=== PATIENT | female | born 1980 | race Two or more races ===

== ENCOUNTER 2017-01-14 18:04 | Emergency (ER) | payer SELFPAY ==
[~2017-01-14] VITALS: Ht 160 cm; Wt 107.5 kg
--- NOTE | 2017-01-14 18:15 | NUR ---
BIBRA 89- ANXIETY ATTACK AFTER FRIEND GAVE HER "BLUE PILL"- FOR PAIN, UNKNOWN PILL. NAD NOTED, VSS, RESP EVEN AND UNLABORED. AAO x1, EASILY AROUSABLE. PT PUT ON MONITOR AND HOSPITAL GOWN, WAITNG FOR MD CODY.
--- NOTE | 2017-01-14 18:25 | NUR ---
dr august at bedside for eval.
[2017-01-14] MEDS ORDERED: IV NS 0.9% 1,000 ML BAG IV ONE (18:30)
--- NOTE | 2017-01-14 18:40 | NUR ---
labor arbitrator hearing office at bedside for blood draw.
[2017-01-14 18:49] LABS: BASOPHILS # (AUTO) 0.5 /CMM (0.0-0.2); BASOPHILS % (AUTO) 3.1 % (0.0-2.0); EOSINOPHILS # (AUTO) 0.5 /CMM (0.0-0.7); EOSINOPHILS % (AUTO) 2.8 % (0.0-6.0); HEMATOCRIT 42 % (33-45); HEMOGLOBIN 13.6 g/dL (11.5-14.8); LYMPHOCYTES # (AUTO) 2.5 /CMM (0.8-4.8); LYMPHOCYTES % (AUTO) 15.5 % (20.0-44.0); MEAN CORPUSCULAR HEMOGLOBIN 26 PG (26.0-33.0); MEAN CORPUSCULAR HGB CONC 33 g/dl (31.0-36.0); MEAN CORPUSCULAR VOLUME 81 fL (82-100); MONOCYTES # (AUTO) 0.7 /CMM (0.1-1.30); MONOCYTES % (AUTO) 4.2 % (2.0-12.0); NEUTROPHILS # (AUTO) 12.1 /CMM (1.8-8.9); NEUTROPHILS % (AUTO) 74.4 % (43.0-81.0); PLATELET COUNT (AUTO) 567 /CMM (150-450); RDW COEFFICIENT OF VARIATION 13.4 (11.5-15.0); RED BLOOD CELL COUNT(AUTO) 5.17 MIL/uL (4.0-5.2); WHITE BLOOD COUNT (AUTO) 16.3 K/uL (4.3-11.0)
[2017-01-14 18:54] LABS: CALCIUM, SERUM 9.4 mg/dL (8.5-10.1); CARBON DIOXIDE 26 mmol/L (21-32); CHLORIDE 104 mmol/L (98-107); GLUCOSE 106 mg/dL (74-106); POTASSIUM 4.2 mmol/L (3.5-5.1); SODIUM SERUM 139 mmol/L (136-145); UREA NITROGEN, BLOOD 18 mg/dL (7-18)
[2017-01-14 18:59] LABS: ALANINE AMINOTRANSFERASE 48 U/L (12-78); ALBUMIN 3.7 g/dL (3.4-5.0); ALCOHOL, BLOOD < 3 mg/dL (0-0); ALKALINE PHOSPHATASE 97 U/L (46-116); ASPARTATE AMINOTRANSFERASE 38 U/L (15-37); BILIRUBIN,DIRECT 0.1 mg/dL (0.0-0.2); BILIRUBIN,TOTAL 0.4 mg/dL (0.2-1.0); TOTAL PROTEIN, SERUM 8.6 g/dL (6.4-8.2)
[2017-01-14 19:00] LABS: ACETAMINOPHEN 0 ug/ml (10-30); SALICYLATE 1.8 mg/dL (2.8-20.0)
[2017-01-14 19:02] LABS: TROPONIN I < 0.017 ng/mL (0.00-0.056)
[2017-01-14 19:13] LABS: APPEARANCE,URINE Clear (CLEAR); BILIRUBIN,URINE Negative (NEGATIVE); BLOOD, URINE Negative Ery/uL (NEGATIVE); COLOR,URINE Yellow (YELLOW); KETONES,URINE Negative (NEGATIVE); LEUKOCYTE ESTERASE ,URINE Negative (NEGATIVE); NITRITE, URINE Negative (NEGATIVE); PH,URINE 5.5 (5.0-8.0); PROTEIN,URINE Negative (NEGATIVE); UGLUCOSE Negative (NEGATIVE); UROBILINOGEN,URINE 0.2 EU/dL (0.2)
[2017-01-14] MEDS ORDERED: IV NS 0.9% 250 ML IV ONE (19:37)
[2017-01-14] MEDS ORDERED: IOHEXOL-350 100 ML VIAL IV ONE (19:37)
[2017-01-14 19:45] LABS: INR 1.04 (0.87-1.13); PROTHROMBIN TIME 10.8 SECS (9.5-12.7)
--- NOTE | 2017-01-14 19:49 | NUR ---
pt to radiology for head and chest cta via [facility].
--- NOTE | 2017-01-14 21:03 | NUR ---
CALLED MARYLOU FOR FOR PSYCH EVAL ETA WITHIN THE HOUR
[2017-01-14] MEDS ORDERED: OLANZAPINE 10 MG VIAL IM ONE ×2 (21:16→21:30)
--- NOTE | 2017-01-14 23:37 | NUR ---
REPORT TO CHARGE NURSE ELIANA FOR YULIET.
--- NOTE | 2017-01-15 05:00 | NUR ---
pt ok to discharge per dr rao. Patient discharged to home in stable condition. Written and verbal after care instructions given. Patient verbalizes understanding of instruction.Patient is awake and alert to self, day, and place. pt ambulatory with a steady gait
[2017-01-15 06:48] VITALS: BP 129/80
== END 2017-01-15 06:48 | disposition home or self-care (01) ==
LOC: ER 18:06
DX: F91.9 Conduct disorder, unspecified (principal); F15.10 Other stimulant abuse, uncomplicated; R79.1 Abnormal coagulation profile; R41.82 Altered mental status, unspecified
CPT/HCPCS: 36415; 51702; 70450; 71010; 71275; 80048; 80076; 80305; 80329; 81001; 84484; 84703; 85025; 85730; 93005 ×2; 99285; A4606; G0480 ×2; J3490; J7030; J7050; Q9967; Z7610; 81000-TC

== ENCOUNTER 2021-07-28 01:27 | Inpatient (IN) | payer OTHER ==
[~2021-07-28] VITALS: Ht 154.9 cm; Wt 113.4 kg
--- NOTE | 2021-07-28 01:44 | NUR ---
BIBRA 89 FROM HOME C/O ABD PAIN HX ABD HERNIA SURGERY 8 MO AGO. ABD WOUND NOTED WITH DEHICENCE. PT A/OX4. TOLERATING R/A WELL WITH NO SOB. CONNECTED PT TO POX AND MONITOR
[2021-07-28] MEDS ORDERED: ONDANSETRON HCL/PF 4 MG/2 ML VIAL ONE (01:54)
[2021-07-28] MEDS ORDERED: IV NS 0.9% 1,000 ML BAG IV ONE (02:00)
[2021-07-28] MEDS ORDERED: ONDANSETRON HCL/PF 4 MG/2 ML VIAL IVP ONE (02:00)
--- NOTE | 2021-07-28 02:00 | NUR ---
BLOOD AND CULTURES COLLECTED AND SENT TO LAB
[2021-07-28 02:11] LABS: BASOPHILS # (AUTO) 0.1 K/uL (0.0-0.2); BASOPHILS % (AUTO) 0.6 % (0.0-2.0); EOSINOPHILS % (AUTO) 2.4 % (0.0-6.0); HEMATOCRIT 47 % (33-45); HEMOGLOBIN 15.2 g/dL (11.5-14.8); LYMPHOCYTES # (AUTO) 1.6 K/uL (0.8-4.8); MEAN CORPUSCULAR HGB CONC 32 g/dl (31.0-36.0); MEAN CORPUSCULAR VOLUME 78 fL (82-100); MONOCYTES # (AUTO) 0.4 K/uL (0.1-1.30); MONOCYTES % (AUTO) 3.2 % (2.0-12.0); NEUTROPHILS # (AUTO) 9.2 K/uL (1.8-8.9); NEUTROPHILS % (AUTO) 79.8 % (43.0-81.0); PLATELET COUNT (AUTO) 440 K/uL (150-450); RED BLOOD CELL COUNT(AUTO) 6.01 MIL/uL (4.0-5.2); WHITE BLOOD COUNT (AUTO) 11.5 K/uL (4.3-11.0)
[2021-07-28 02:24] LABS: CALCIUM, SERUM 9.1 mg/dL (8.5-10.1); POTASSIUM 4.3 mmol/L (3.5-5.1)
[2021-07-28] MEDS ORDERED: MORPHINE SULFATE INJ 4 MG/ML DISP.SYRIN ONE ×3 (02:24→08:18)
[2021-07-28 02:30] LABS: ALBUMIN 3.2 g/dL (3.4-5.0); BILIRUBIN,DIRECT 0.1 mg/dL (0.0-0.2); BILIRUBIN,TOTAL 0.3 mg/dL (0.2-1.0); TOTAL PROTEIN, SERUM 8.6 g/dL (6.4-8.2)
[2021-07-28] MEDS ORDERED: MORPHINE SULFATE INJ 2 MG/ML DISP.SYRIN IV ONE ×3 (02:30→08:30)
--- NOTE | 2021-07-28 02:40 | NUR ---
pt unable to provide urine at this time
--- NOTE | 2021-07-28 02:48 | NUR ---
PT TAKEN TO CT VIA DEBBIE
--- NOTE | 2021-07-28 02:49 | NUR ---
pt transported to ct via [facility]
--- NOTE | 2021-07-28 03:38 | NUR ---
FOLLOWED UP WITH [facility]
[2021-07-28 04:26] LABS: BILIRUBIN,URINE NEGATIVE (NEGATIVE); COLOR,URINE YELLOW (YELLOW); LEUKOCYTE ESTERASE ,URINE NEGATIVE (NEGATIVE); NITRITE, URINE POSITIVE (NEGATIVE); PROTEIN,URINE NEGATIVE (NEGATIVE); UGLUCOSE NEGATIVE (NEGATIVE); UROBILINOGEN,URINE 0.2 EU/dL (0.2)
[2021-07-28] MEDS ORDERED: hydrALAZINE HCL IV 20 MG VIAL ONE ×2 (04:34→06:00)
[2021-07-28 04:36] LABS: RBC,URINE 0-2 /HPF (0-2); WBC,URINE 0-2 /HPF (0-3)
[2021-07-28 04:37] LABS: BACTERIA,URINE Many /HPF (None Seen); SQUAMOUS EPITHELIAL CELL,UR Rare /HPF (None Seen)
[2021-07-28 04:38] LABS: URINE AMORPHOUS PHOSPHATES Many /HPF (None Seen)
[2021-07-28] MEDS ORDERED: hydrALAZINE HCL IV 20 MG VIAL IV ONE ×2 (05:00→06:00)
--- NOTE | 2021-07-28 05:04 | NUR ---
COVID ANTIGEN SWAB COLLECTED AND SENT TO LAB
--- NOTE | 2021-07-28 05:10 | NUR ---
ATTEMPTED NGT INSERTION. PT DID NOT TOLERATE PROCEDURE WELL AND REMOVED NGT. WILL TRY AGAIN LATER.
[2021-07-28] MEDS ORDERED: PIPERACILLIN /TAZOBACTAM 3.375 G VIAL IV ONE (05:57)
--- NOTE | 2021-07-28 05:57 | NUR ---
CALLED DR GIBSON BUT NO ANSWER. ADVICED TO CALL BACK AFTER 5 MIN D/T MD IS ON THE PHONE.
--- NOTE | 2021-07-28 05:58 | NUR ---
PER ELDON Burger/Zully PLEASE DR TENORIO [phone] FOR PEER TO PEER
[2021-07-28] MEDS ORDERED: PIPERACILLIN /TAZOBACTAM 3.375 G in IV D5W 50 ML IV ONE (06:00)
--- NOTE | 2021-07-28 06:33 | NUR ---
ATTEMPTED NGT REINSTERION. PT REFUSED.
--- NOTE | 2021-07-28 06:37 | NUR ---
CALLED BACK DR. GIBSON, NO ANSWER
--- NOTE | 2021-07-28 07:26 | NUR ---
receved pt from GENIA RN PT in bed awake AND C/O abdomiale pain no vomition abdomin heard to touch
--- NOTE | 2021-07-28 07:50 | NUR ---
DR. HOLCOMB ON THE PHONE WITH DR. WELLS FOR PEER TO PEER.
--- NOTE | 2021-07-28 07:56 | NUR ---
Wating FOR to be admited
--- NOTE | 2021-07-28 08:20 | NUR ---
DR. HAN [phone] HOLCOMB
--- NOTE | 2021-07-28 08:32 | NUR ---
CALLED DR. DALLAS LEFT MSG.
--- NOTE | 2021-07-28 08:34 | NUR ---
[facility] CALLED COOK FRY PAGED.
[2021-07-28] MEDS ORDERED: LISI10TA29 PO (08:39)
[2021-07-28] MEDS ORDERED: FERR325T23 PO (08:39)
[2021-07-28] MEDS ORDERED: DOCU100C36 PO (08:39)
[2021-07-28] MEDS ORDERED: ATOR10TA PO (08:39)
[2021-07-28] MEDS ORDERED: METF-440 PO (08:39)
--- NOTE | 2021-07-28 09:38 | NUR ---
CALLED DR. DALLAS [phone] LEFT MS.
--- NOTE | 2021-07-28 09:54 | NUR ---
WATING TO ROOM
--- NOTE | 2021-07-28 10:14 | NUR ---
CHANGE abdominal dressing on abdomin done keep skin clean with NS AND appled with NS AND coved with 4x4 Gauze Sponges and keep dry and clean
--- NOTE | 2021-07-28 11:06 | NUR ---
PT RESTING AND ASLEEPY AT THIS TIME NO PAIN NOTED wating for room
--- NOTE | 2021-07-28 12:29 | NUR ---
Mauricioing for moniter bed pt condition stable
--- NOTE | 2021-07-28 15:03 | NUR ---
WATING FOR room to be INPT
--- NOTE | 2021-07-28 15:31 | NUR ---
HAND OFF TO ZAY RN TO ROOM 119 -2 VIA GARNY STABLE VS AND CONDITUIN AWAKE AND ALERT
[2021-07-28] MEDS ORDERED: Z GUARD REMEDY 4 OZ OINT TP PRN (16:00)
[2021-07-28] MEDS ORDERED: ONDANSETRON HCL/PF 4 MG/2 ML VIAL IVP PRN (16:00)
[2021-07-28] MEDS ORDERED: ACETAMINOPHEN 325 MG TABLET PO PRN (16:00)
[2021-07-28] MEDS: ENOXAPARIN SODIUM 40 MG/0.4 ML DISP.SYRIN SQ SCH (16:33)
[2021-07-28] MEDS: IV LR 1000 ML 1,000 ML IV PRN (16:47)
[2021-07-28] MEDS ORDERED: DOCUSATE SODIUM 100 MG CAPSULE PO PRN (17:00)
[2021-07-28] MEDS: PIPERACILLIN /TAZOBACTAM 3.375 G in IV D5W 50 ML IV SCH ×2 (17:37→23:18)
[2021-07-28] MEDS ORDERED: HYDROCODONE/APAP 10/325MG TABLET PO PRN (18:00)
[2021-07-28 18:28] VITALS: BP 154/83
--- NOTE | 2021-07-28 19:30 | NUR ---
RN Opening Note Received patient in bed, A/O x 4, able to make needs known. On room air, tolerating well. Pt breathing evenly and unlabored. No SOB or s/s of distress noted at this time. pt denies pain. IV access noted on RAC #18 intact and patent, running LR at 100 ml/hr. Kept HOB elevated. All safety precautions in place: bed in low, locked position; side rails up x 2; call light within reach. Will continue to monitor the patient.
--- NOTE | 2021-07-28 19:32 | NUR ---
END OF SHIFT REPORT Received patient from ER via gurney at 1535. Patient is A/O x 4, able to make needs known. On room air, breathing evenly and unlabored. No SOB or s/s of distress noted. IV access on RAC #18 intact and patent, hooked LR at 100 ml/hr. Patient oriented to room and how to use the call light; made comfortable. All belongings accounted for. Tele monitor attached, showing SR HR on the 70's. Skin assessment done, photos taken and placed in chart. Lungs clear. Bowels sounds present x 4. VS as follows: BP 154/83, HR 95, RR 18, Temp 97.9, SPO2 95%. Safety precautions maintained: bed in low, locked position; siderails up x 2; call light within reach. Will endorse to teachers assistant nurse for YULIET.
[2021-07-28 20:00] VITALS: BP 140/79
[2021-07-28] MEDS: MORPHINE SULFATE INJ 2 MG/ML DISP.SYRIN IV PRN (23:29)
[2021-07-29 04:00] VITALS: BP 144/86
[2021-07-29] MEDS: PIPERACILLIN /TAZOBACTAM 3.375 G in IV D5W 50 ML IV SCH ×4 (05:30→23:55)
[2021-07-29] MEDS: MORPHINE SULFATE INJ 2 MG/ML DISP.SYRIN IV PRN ×3 (05:30→17:05)
[2021-07-29] MEDS: IV LR 1000 ML 1,000 ML IV PRN (06:30)
--- NOTE | 2021-07-29 07:00 | NUR ---
RN NOTE RECEIVED PATIENT IN BED RESTING ALERT ORIENTED X4 VERBALLY RESPONSIVE ON ROOM AIR o2:100 IV SITE IS ON RIGHT AC INTACT PATENT ON LR 100CC/HR,NPO,FOR PROCEDURE XR SMALL BOWEL FOLLOW THROUGH AMBULATORY,CONTIENT TO BOWEL/BLADDER CONTIENT TO BOWEL/BLADDER,SAFETY MEASURE IMPLEMENT BED IN LOW POSITION AND LOCKED CONTINUE TO MONITOR.
[2021-07-29 07:15] LABS: BASOPHILS % (AUTO) 0.6 % (0.0-2.0); EOSINOPHILS % (AUTO) 4.6 % (0.0-6.0); HEMATOCRIT 41 % (33-45); HEMOGLOBIN 13.5 g/dL (11.5-14.8); LYMPHOCYTES # (AUTO) 1.5 K/uL (0.8-4.8); LYMPHOCYTES % (AUTO) 18.6 % (20.0-44.0); MEAN CORPUSCULAR HGB CONC 33 g/dl (31.0-36.0); MEAN CORPUSCULAR VOLUME 79 fL (82-100); MONOCYTES # (AUTO) 0.3 K/uL (0.1-1.30); MONOCYTES % (AUTO) 3.7 % (2.0-12.0); NEUTROPHILS # (AUTO) 5.9 K/uL (1.8-8.9); NEUTROPHILS % (AUTO) 72.5 % (43.0-81.0); PLATELET COUNT (AUTO) 392 K/uL (150-450); WHITE BLOOD COUNT (AUTO) 8.2 K/uL (4.3-11.0)
[2021-07-29 07:34] LABS: ALBUMIN 2.4 g/dL (3.4-5.0); BILIRUBIN,TOTAL 0.5 mg/dL (0.2-1.0); CALCIUM, SERUM 8.2 mg/dL (8.5-10.1); CREATININE 1.1 mg/dL (0.6-1.3); MAGNESIUM 2.1 mg/dL (1.8-2.4); PHOSPHORUS 3.3 mg/dL (2.5-4.9); POTASSIUM 4.2 mmol/L (3.5-5.1); TOTAL PROTEIN, SERUM 6.9 g/dL (6.4-8.2)
--- NOTE | 2021-07-29 07:44 | NUR ---
RN Closing Note Pt remined stable throughout the shift. In bed, A/O x 4, able to make needs known. On room air, tolerating well. O 2 sat is at 93%. Pt breathing evenly and unlabored. No SOB or s/s of distress. IV access noted on RAC #18 intact and patent, running LR at 100 ml/hr. Kept HOB elevated. All due meds given. All needs attended to. Safety precautions implemented. Bed in low, locked position; side rails up x 2; call light within reach. Will endorse to AM shift nurse for YULIET.
[2021-07-29] MEDS: LISINOPRIL (10MG) 10 MG TABLET PO SCH ×2 (09:00→10:22)
[2021-07-29] MEDS: ATORVASTATIN 10 MG TABLET PO SCH (09:00)
[2021-07-29] MEDS: FERROUS SULFATE (325 MG) 325 MG/TAB TABLET PO SCH (09:00)
[2021-07-29] MEDS ORDERED: DIATR MEGLU/DIATRIZOATE SODIUM 120 ML BOTTLE (GASTROGRAPHIN) ONE (09:17)
[2021-07-29 12:00] VITALS: BP 186/94
[2021-07-29] MEDS ORDERED: hydrALAZINE HCL IV 20 MG VIAL IV ONE (12:00)
[2021-07-29] MEDS: ENOXAPARIN SODIUM 40 MG/0.4 ML DISP.SYRIN SQ SCH (15:36)
[2021-07-29] MEDS ORDERED: DOXY-326 PO (16:34)
--- NOTE | 2021-07-29 19:30 | NUR ---
RN Opening Note Received patient in bed, sleeping. On room air, tolerating well. Pt breathing evenly and unlabored. No SOB or s/s of distress noted at this time. IV access noted on RAC #18 intact and patent, running LR at 100 ml/hr. Kept HOB elevated. All safety precautions in place: bed in low, locked position; side rails up x 2; call light within reach. Will continue to monitor the patient.
--- NOTE | 2021-07-29 19:57 | NUR ---
RN NOTE PATIENT REMAINS ALERT ORIENTED X4 VERBALLY RESPONSIVE NO SOB NOT ACUTE DISTRESS NOTED,ENDORSE NEXT COMING SHIFT FOR CONTINUATION OF CARE.
[2021-07-29 20:00] VITALS: BP 150/73
[2021-07-30] MEDS: MORPHINE SULFATE INJ 2 MG/ML DISP.SYRIN IV PRN ×2 (00:40→08:01)
[2021-07-30 04:00] VITALS: BP 150/78
[2021-07-30] MEDS: PIPERACILLIN /TAZOBACTAM 3.375 G in IV D5W 50 ML IV SCH (05:02)
[2021-07-30] MEDS: IV LR 1000 ML 1,000 ML IV PRN (06:09)
--- NOTE | 2021-07-30 07:00 | NUR ---
RN Closing Note Pt remained stable throughout the shift. In bed, A/O x 4, sleeping most of the time. On room air, tolerating well. O2 sat is at 94%. Pt breathing evenly and unlabored. No SOB or s/s of distress. IV access noted on RAC #18 intact and patent, running LR at 100 ml/hr. Kept HOB elevated. All due meds given. All needs attended to. Safety precautions implemented. Bed in low, locked position; side rails up x 2; call light within reach. For discharge today. Will endorse to AM shift nurse for YULIET.
--- NOTE | 2021-07-30 07:40 | NUR ---
RN OPENING NOTES: Received patient in bed, sleeping. On room air, tolerating well. Pt breathing evenly and unlabored. No SOB or s/s of distress noted at this time. IV access noted on RAC #18 intact and patent, running LR at 100 ml/hr. Kept HOB elevated. All safety precautions in place: bed in low, locked position; side rails up x 2; call light within reach. Will continue to monitor the patient.
[2021-07-30] MEDS: FERROUS SULFATE (325 MG) 325 MG/TAB TABLET PO SCH (08:00)
[2021-07-30] MEDS: ATORVASTATIN 10 MG TABLET PO SCH (08:01)
--- NOTE | 2021-07-30 09:26 | NUR ---
IV DC,DISCHARGE INSTRUCTION GIVEN.
--- NOTE | 2021-07-30 09:41 | NUR ---
DISCHARGE AMBULATORY,INSTRUCTION GIVEN.
--- NOTE | 2021-07-30 09:41 | NUR ---
PT REFUSED DC PHOTO TAKEN.
== END 2021-07-30 09:43 | disposition home or self-care (01) | DRG 466 ==
LOC: ER 01:29 → TELE1 15:18 → MEDSG1 22:35
PROVIDERS: ADMIT Nurse Practitioner Acute Care; ATTEND Nurse Practitioner Acute Care
DX: T83.718A Erosion of other implanted mesh to organ or tissue, initial encounter (principal); K56.600 Partial intestinal obstruction, unspecified as to cause; T81.31XA Disruption of external operation (surgical) wound, not elsewhere classified, initial encounter; E88.09 Other disorders of plasma-protein metabolism, not elsewhere classified; E11.9 Type 2 diabetes mellitus without complications; D64.9 Anemia, unspecified; E66.01 Morbid (severe) obesity due to excess calories; E78.5 Hyperlipidemia, unspecified; F15.10 Other stimulant abuse, uncomplicated; I16.0 Hypertensive urgency; N39.0 Urinary tract infection, site not specified; Z20.822 Contact with and (suspected) exposure to COVID-19; I10 Essential (primary) hypertension; Z98.890 Other specified postprocedural states; Z79.84 Long term (current) use of oral hypoglycemic drugs; Z79.899 Other long term (current) drug therapy; Z90.710 Acquired absence of both cervix and uterus; G89.29 Other chronic pain; F17.200 Nicotine dependence, unspecified, uncomplicated; Z68.42 Body mass index [BMI] 45.0-49.9, adult; Y92.009 Unspecified place in unspecified non-institutional (private) residence as the place of occurrence of the external cause; Y83.2 Surgical operation with anastomosis, bypass or graft as the cause of abnormal reaction of the patient, or of later complication, without mention of misadventure at the time of the procedure; Z83.3 Family history of diabetes mellitus; Y83.8 Other surgical procedures as the cause of abnormal reaction of the patient, or of later complication, without mention of misadventure at the time of the procedure
CPT/HCPCS: 36415; 74250-TC; 80048-TC; 80053-TC; 80061-TC; 80076-TC; 81001; 83540-TC; 83605-TC; 83690-TC; 83735-TC; 84100-TC; 85025-TC; 85730-TC; 87040-TC; 87081-TC; 87086-TC; A6403; C9803; G0378; J0360; J1650; J2270; J2405; J2543; J7060; J7120; Q9963